=== PATIENT | male | born 1990 | race Caucasian/White ===

== ENCOUNTER 2017-11-24 18:09 | Emergency (ER) | payer OTHER, BC ==
[2017-11-24 18:27] VITALS: RESP 16
[2017-11-24] MEDS ORDERED: SODIUM CHLORIDE 0.9% 1,000 ML IV STA (20:39)
--- NOTE | 2017-11-24 21:15 | XR ---
EXAMINATION TYPE: XR chest 2V DATE OF EXAM: 11/24/2017 COMPARISON: NONE HISTORY: Chest pain TECHNIQUE: Frontal and lateral views of the chest are obtained. FINDINGS: Heart and mediastinum are normal. Lungs are clear. Diaphragm is normal. Bony thorax appear s normal. IMPRESSION: Normal chest
--- NOTE | 2017-11-24 21:21 | ED ---
Burn/Smoke HPI - General Chief complaint: Burn/Smoke Inhalation Stated complaint: Possible inhaled powder substance at work Time Seen by Provider: 11/24/17 20:25 Source: patient, RN notes reviewed Mode of arrival: ambulatory Limitations: no limitations - History of Present Illness Initial comments: This is a 27-year-old male who presents to the emergency department with chief complaint of possible inhalation of an unknown substance. Patient states that he works for [employer]. He states that last evening he opened up a bag that contained Xanax and an unknown powder substance. Patient states that he instantly felt chilled. He states that this morning when he woke up he had body aches and has had a cough. Patient is concerned and immediately if inhaled a danger substance. He denies any fevers, chest pain or shortness of breath, abdominal pain, nausea or vomiting. States he is generally healthy. Denies any recent illnesses or infections. - Related Data Home Medications Medication Instructions Recorded Confirmed Multivitamin,Therapeutic [Thera] 1 tab PO DAILY 11/24/17 11/24/17 Allergies Allergy/AdvReac Type Severity Reaction Status Date / Time No Known Allergies Allergy Verified 11/24/17 20:15 Review of Systems ROS Statement: Those systems with pertinent positive or pertinent negative responses have been documented in the HPI. ROS Other: All systems not noted in ROS Statement are negative. Past Medical History Past Medical History: No Reported History History of Any Multi-Drug Resistant Organisms: None Reported Past Surgical History: Orthopedic Surgery Additional Past Surgical History / Comment(s): ANKLE SURGERY Past Psychological History: No Psychological Hx Reported Smoking Status: Never smoker Past Alcohol Use History: None Reported Past Drug Use History: None Reported General Exam - General Exam Comments Initial Comments: General: Awake and alert, well-developed; in no apparent distress. Does not appear acutely ill. HEENT: Head atraumatic, normocephalic. Pupils are equal, round and reactive to light. Extraocular movements intact. Oropharynx moist without erythema or exudate. Neck: Supple. Normal ROM. Cardiovascular: Regular rate and rhythm. No murmurs, rubs or gallops. Chest symmetrical. Respiratory: Lungs clear to auscultation bilaterally. No wheezes, rales or rhonchi. Normal respiratory effort with no use of accessory muscles. Musculoskeletal: Normal ROM, no tenderness bilateral upper and lower extremities. Ambulating normally. Skin: [place], warm and dry without rashes or lesions. Neurological: Alert and oriented x3. CN II-XII grossly intact. Speech is fluent and answers are appropriate. No focal neuro deficits. Psychiatric: Normal mood and affect. No overt signs of depression or anxiety noted. Limitations: no limitations Course Vital Signs 11/24/17 18:23 Temperature 97.8 F Pulse Rate 91 Respiratory 16 Rate Blood Pressure 136/81 O2 Sat by Pulse 98 Oximetry Medical Decision Making - Medical Decision Making This is a 27-year-old male who presents to the emergency department with chief complaint of possible inhalation of unknown substance. Patient reports body aches, chills since yesterday after opening a package at work and that contained a foreign powder a substance. Patient requested drug screen. This was negative. Chest x-ray revealed no acute abnormalities. CBC and CMP are unremarkable. Patient requests a couple days off from work. Vitals are stable and he is no acute distress. He will be discharged home at this time. Patient is in agreement. All questions answered. - Lab Data Result diagrams: 11/24/17 21:36 11/24/17 21:36 Lab Results 11/24/17 11/24/17 11/24/17 Range/Units 21:36 21:36 21:36 WBC 12.9 H (3.8-10.6) k/uL RBC 5.32 (4.30-5.90) m/uL Hgb 16.0 (13.0-17.5) gm/dL Hct 48.1 (39.0-53.0) % MCV 90.5 (80.0-100.0) fL MCH 30.1 (25.0-35.0) pg MCHC 33.2 (31.0-37.0) g/dL RDW 12.8 (11.5-15.5) % Plt Count 169 (150-450) k/uL Neutrophils % 76 % Lymphocytes % 14 % Monocytes % 7 % Eosinophils % 2 % Basophils % 0 % Neutrophils # 9.8 H (1.3-7.7) k/uL Lymphocytes # 1.8 (1.0-4.8) k/uL Monocytes # 0.9 (0-1.0) k/uL Eosinophils # 0.2 (0-0.7) k/uL Basophils # 0.0 (0-0.2) k/uL Sodium 139 (137-145) mmol/L Potassium 4.4 (3.5-5.1) mmol/L Chloride 104 (98-107) mmol/L Carbon Dioxide 26 (22-30) mmol/L Anion Gap 9 mmol/L BUN 20 (9-20) mg/dL Creatinine 1.38 H (0.66-1.25) mg/dL Est GFR (CKD-EPI)AfAm 81 (>60 ml/min/1.73 sqM) Est GFR (CKD-EPI)NonAf 70 (>60 ml/min/1.73 sqM) Glucose 92 (74-99) mg/dL Calcium 8.8 (8.4-10.2) mg/dL Total Bilirubin 0.7 (0.2-1.3) mg/dL AST 48 (17-59) U/L ALT 45 (21-72) U/L Alkaline Phosphatase 42 (38-126) U/L Total Protein 6.7 (6.3-8.2) g/dL Albumin 3.9 (3.5-5.0) g/dL Urine Opiates Screen Not Detected (NotDetected) Ur Oxycodone Screen Not Detected (NotDetected) Urine Methadone Screen Not Detected (NotDetected) Ur Propoxyphene Screen Not Detected (NotDetected) Ur Barbiturates Screen Not Detected (NotDetected) U Tricyclic Antidepress Not Detected (NotDetected) Ur Phencyclidine Scrn Not Detected (NotDetected) Ur Amphetamines Screen Not Detected (NotDetected) U Methamphetamines Scrn Not Detected (NotDetected) U Benzodiazepines Scrn Not Detected (NotDetected) Urine Cocaine Screen Not Detected (NotDetected) U Marijuana (THC) Screen Not Detected (NotDetected) - Radiology Data Radiology results: report reviewed Chest x-ray impression: Normal chest. Disposition Clinical Impression: Myalgia Disposition: HOME SELF-CARE Condition: Good Instructions: Musculoskeletal Pain (ED) Additional Instructions: Please follow up with primary care provider within 1-2 days. Return to emergency department if symptoms should worsen or any concerns arise. Is patient prescribed a controlled substance at d/c from ED?: No Referrals: None,Stated [Primary Care Provider] - 1-2 days Time of Disposition: 22:59
[2017-11-24 21:51] LABS: Basophils % (A) 0 %; Eosinophils # (A) 0.2 k/uL (0-0.7); Eosinophils % (A) 2 %; HCT 48.1 % (39.0-53.0); Lymphocytes # (A) 1.8 k/uL (1.0-4.8); Lymphocytes % (A) 14 %; MCH 30.1 pg (25.0-35.0); MCHC 33.2 g/dL (31.0-37.0); MCV 90.5 fL (80.0-100.0); Mean Platelet Volume 7.6; Monocytes # (A) 0.9 k/uL (0-1.0); Monocytes % (A) 7 %; Neutrophils # (A) 9.8 k/uL (1.3-7.7); Neutrophils % (A) 76 %; Platelet Count 169 k/uL (150-450); RBC 5.32 m/uL (4.30-5.90); RDW 12.8 % (11.5-15.5); WBC 12.9 k/uL (3.8-10.6)
[2017-11-24 22:05] LABS: Amphetamine Screen,Urine Not Detected (NotDetected); Barbiturate Screen,Urine Not Detected (NotDetected); Benzodiazepines Screen,Urine Not Detected (NotDetected); Cocaine Screen,Urine Not Detected (NotDetected); Methadone Screen, Urine Not Detected (NotDetected); Opiate Screen,Urine Not Detected (NotDetected); Oxycodone Screen, Urine Not Detected (NotDetected); Phencyclidine Screen,Urine Not Detected (NotDetected); Tricyclic Antidepressant,Urine Not Detected (NotDetected); Urn Cannabinoid Scrn Not Detected (NotDetected)
[2017-11-24 22:16] LABS: Albumin 3.9 g/dL (3.5-5.0); Calcium 8.8 mg/dL (8.4-10.2); Potassium 4.4 mmol/L (3.5-5.1); Total Bilirubin 0.7 mg/dL (0.2-1.3); Total Protein 6.7 g/dL (6.3-8.2)
[2017-11-24 23:43] VITALS: TEMP 98.7
[2017-11-24 23:44] VITALS: BP 135/77; PULSE 94
== END 2017-11-24 23:44 | disposition home or self-care (01) ==
LOC: EC 18:09
DX: M79.1 Myalgia (principal); R05 Cough; R68.83 Chills (without fever)
CPT/HCPCS: 36415; 71046; 80053; 80306; 85025; 96360; 99283

== ENCOUNTER → 2018-01-29 | Outpatient (CLI) | payer BC ==
[2018-01-29 16:39] LABS: HGB 14.7 gm/dL (13.0-17.5); MCHC 32.5 g/dL (31.0-37.0); MCV 92.1 fL (80.0-100.0); Mean Platelet Volume 7.1; Platelet Count 252 k/uL (150-450); RBC 4.89 m/uL (4.30-5.90); RDW 13.4 % (11.5-15.5)
[2018-01-29 16:48] LABS: INR 1.1 (<1.2); Partial Thromboplastin Time 22.4 sec (22.0-30.0); Prothrombin Time 10.6 sec (9.0-12.0)
[2018-01-30 08:26] LABS: Anion Gap 7.7 mmol/L (4.00-12.00); Calcium 9.1 mg/dL (8.7-10.3); Carbon Dioxide 26.3 mmol/L (21.6-31.8); Potassium 4.8 mmol/L (3.5-5.5)
== END ==
LOC: LABWHC1 15:54
DX: Z01.812 Encounter for preprocedural laboratory examination (principal)
CPT/HCPCS: 36415; 80048; 85027; 85610; 85730

== ENCOUNTER 2018-05-25 00:11 | Emergency (ER) | payer BC ==
[2018-05-25 00:19] VITALS: TEMP 99.2
[2018-05-25] MEDS ORDERED: SODIUM CHLORIDE 0.9% 1,000 ML IV ONE (00:37)
--- NOTE | 2018-05-25 00:44 | ED ---
General Adult HPI - General Chief complaint: Skin/Abscess/Foreign Body Stated complaint: Recheck Swollen Butt Cheek Time Seen by Provider: 05/25/18 00:23 Source: patient Mode of arrival: ambulatory Limitations: no limitations - History of Present Illness Initial comments: There presents with a chief complaint of an abscess of the right gluteus. The patient states that he was visiting family in [place] and went to a place called [facility] for an injection of vitamins and other supplements that were supposed to help him with seasonal depression. Now, 2 days later the patient states that after driving home he had pain in the right gluteus with a fever as high as 102. Patient states that that side is swollen, it is tender to palpation, and it is uncomfortable to sit. He denies any pain with defecation. He does not have any other known medical problems. - Related Data Home Medications Medication Instructions Recorded Confirmed Multivitamin,Therapeutic [Thera] 1 tab PO DAILY 11/24/17 11/24/17 Previous Rx's Medication Instructions Recorded Sulfamethox-Tmp 800-160Mg [Bactrim 1 tab PO Q12HR #13 tab 05/25/18 DS 800-160 mg] Allergies Allergy/AdvReac Type Severity Reaction Status Date / Time No Known Allergies Allergy Verified 05/25/18 00:21 Review of Systems ROS Statement: Those systems with pertinent positive or pertinent negative responses have been documented in the HPI. ROS Other: All systems not noted in ROS Statement are negative. Constitutional: Reports: fever Past Medical History Past Medical History: No Reported History History of Any Multi-Drug Resistant Organisms: None Reported Past Surgical History: Orthopedic Surgery Additional Past Surgical History / Comment(s): ANKLE SURGERY Past Psychological History: No Psychological Hx Reported Smoking Status: Never smoker Past Alcohol Use History: None Reported Past Drug Use History: None Reported General Exam Limitations: no limitations General appearance: alert, in no apparent distress Head exam: Present: atraumatic, normocephalic Eye exam: Present: normal appearance ENT exam: Present: normal exam Neck exam: Present: normal inspection Respiratory exam: Present: normal lung sounds bilaterally. Absent: respiratory distress, wheezes Cardiovascular Exam: Present: regular rate, normal rhythm GI/Abdominal exam: Present: soft. Absent: distended, tenderness Rectal exam: Present: deferred Extremities exam: Present: normal inspection Back exam: Present: normal inspection Neurological exam: Present: alert, oriented X3 Psychiatric exam: Present: normal affect, normal mood Skin exam: Present: warm, dry, intact, other (Patient has an area of swelling and fluctuance on the right lateral buttocks. There does not appear to be any significant overlying skin changes consistent with cellulitis. Ultrasound evaluation shows a large fluid collection underneath the skin which appears to be within the muscle belly.) Course Vital Signs 05/25/18 05/25/18 00:12 01:21 Temperature 99.2 F Pulse Rate 92 77 Respiratory 18 16 Rate Blood Pressure 133/79 126/71 O2 Sat by Pulse 99 97 Oximetry Medical Decision Making - Medical Decision Making Patient presents with a chief complaint of a possible abscess in the right gluteus. The patient got a vitamin injection 2 days ago in [place] and started having pain after driving home to [place]. On initial evaluation, vitals are stable, patient is in no acute distress. Examination of the areas concerning for an abscess as a fluctuance and tenderness to palpation. There are no overlying skin changes. Bedside ultrasound was performed showing a large discrete fluid collection which appears to be within the muscle belly. Because of this, the patient will be sent for computed tomography scan evaluation with contrast to further characterize fluid collection. Patient denies anabolic steroid use. Basic labs including lactic acid and blood cultures were sent. 1:41 AM Evaluation this patient is unremarkable. Computed tomography scan was reviewed independently and discussed with the reading radiologist. There is no definite ring-enhancing area of abscess. There is noted soft tissue edema and hypervascularization but no evidence of a drainable abscess. I discussed this case with Dr. Parra who states that there is nothing surgical to do at this time given there is no discrete abscess. The patient will be started on antibiotics, given his first dose of Bactrim in the emergency department. He'll be instructed to follow-up with primary care in 1-2 days or return to the [facility] department if symptoms worsen or change. - Lab Data Result diagrams: 05/25/18 00:48 05/25/18 00:48 Lab Results 05/25/18 05/25/18 05/25/18 Range/Units 00:48 00:48 00:48 WBC 8.7 (3.8-10.6) k/uL RBC 5.08 (4.30-5.90) m/uL Hgb 15.1 (13.0-17.5) gm/dL Hct 46.4 (39.0-53.0) % MCV 91.4 (80.0-100.0) fL MCH 29.6 (25.0-35.0) pg MCHC 32.4 (31.0-37.0) g/dL RDW 13.6 (11.5-15.5) % Plt Count 197 (150-450) k/uL Neutrophils % 65 % Lymphocytes % 20 % Monocytes % 9 % Eosinophils % 3 % Basophils % 0 % Neutrophils # 5.6 (1.3-7.7) k/uL Lymphocytes # 1.8 (1.0-4.8) k/uL Monocytes # 0.8 (0-1.0) k/uL Eosinophils # 0.3 (0-0.7) k/uL Basophils # 0.0 (0-0.2) k/uL Sodium 138 (137-145) mmol/L Potassium 3.9 (3.5-5.1) mmol/L Chloride 104 (98-107) mmol/L Carbon Dioxide 26 (22-30) mmol/L Anion Gap 8 mmol/L BUN 25 H (9-20) mg/dL Creatinine 1.26 H (0.66-1.25) mg/dL Est GFR (CKD-EPI)AfAm 89 (>60 ml/min/1.73 sqM) Est GFR (CKD-EPI)NonAf 77 (>60 ml/min/1.73 sqM) Glucose 101 H (74-99) mg/dL Plasma Lactic Acid Thomas 1.2 (0.7-2.0) mmol/L Calcium 8.5 (8.4-10.2) mg/dL Disposition Clinical Impression: Cellulitis Disposition: HOME SELF-CARE Condition: Good Instructions (If sedation given, give patient instructions): Cellulitis (ED) Is patient prescribed a controlled substance at d/c from ED?: No Referrals: None,Stated [Primary Care Provider] - 1-2 days Marcelle Santiago MD [STAFF PHYSICIAN] - 1-2 days
[2018-05-25 01:00] LABS: Basophils % (A) 0 %; Eosinophils # (A) 0.3 k/uL (0-0.7); Eosinophils % (A) 3 %; HCT 46.4 % (39.0-53.0); HGB 15.1 gm/dL (13.0-17.5); Lymphocytes # (A) 1.8 k/uL (1.0-4.8); Lymphocytes % (A) 20 %; MCH 29.6 pg (25.0-35.0); MCHC 32.4 g/dL (31.0-37.0); MCV 91.4 fL (80.0-100.0); Mean Platelet Volume 7.3; Monocytes # (A) 0.8 k/uL (0-1.0); Monocytes % (A) 9 %; Neutrophils # (A) 5.6 k/uL (1.3-7.7); Neutrophils % (A) 65 %; Platelet Count 197 k/uL (150-450); RBC 5.08 m/uL (4.30-5.90); RDW 13.6 % (11.5-15.5); WBC 8.7 k/uL (3.8-10.6)
[2018-05-25 01:14] LABS: Calcium 8.5 mg/dL (8.4-10.2); Potassium 3.9 mmol/L (3.5-5.1)
[2018-05-25 01:23] VITALS: BP 126/71; PULSE 77; RESP 16
--- NOTE | 2018-05-25 01:23 | CT ---
ADDENDUM - Added by Jenny Jackson M.D. on 05/25/2018 1:34 AM (-08:00) Patient reportedly had an intramuscular shot in the right gluteal region. This likely explains the fat stranding in the subcutaneous fat over the right gluteal muscles. Hypoattenuation in the right gluteus santino muscle is concerning for fluid and edema within the muscle which may be related to the recent injection. Superimposed infection is not entirely excluded. No definite rim-enhancing fluid collection identified at this time. No definite soft tissue gas. EXAM: CT Abdomen and Pelvis With Intravenous Contrast CLINICAL HISTORY: ITS.REASON CT Reason: Pain TECHNIQUE: Axial computed tomography images of the abdomen and pelvis with intravenous contrast. CTDI is 17.27 mGy and DLP is 796.5 mGy-cm. This CT exam was performed using one or more of the following dose reduction techniques: automated exposure control, adjustment of the mA and/or kV according to patient size, and/or use of iterative reconstruction technique. COMPARISON: None FINDINGS: Liver: Probable hepatic steatosis. Mild hepatomegaly. No focal lesion. Spleen: Normal. No focal lesion. Gallbladder: Normal. No stones or biliary dilatation. Pancreas: Normal. No acute inflammation. No mass. Adrenal glands: Normal. No mass. Kidneys: Normal. No hydronephrosis or stone. No mass. Bowel: Normal appendix. No bowel obstruction or inflammation. Urinary bladder: Normal. No wall thickening or mass. Reproductive organs: Prominent vessels in the inguinal canals/scrotum. Muscles: No mass. Subcutaneous tissues: Nonspecific fat stranding in the gluteal soft tissues. Peritoneal space: Normal. No free fluid. Lymph nodes: Normal. No lymphadenopathy. Vessels: Normal. No aneurysm or dissection. Bones: Normal. No acute fracture or bony lesion. Lung bases: Normal. IMPRESSION: No acute abnormality in the abdomen or pelvis. Prominent vessels in the inguinal canals/scrotum bilaterally may represent varicoceles. <MYCVCSECTION> Critical Value Communications 05/25/18 01:32 Call From [facility] Dr. Banks on 05/25 01:30 (-05:00)
[2018-05-25] MEDS ORDERED: SULFAMETHOX-TMP 800-160MG 1 EACH TAB PO STA (01:39)
== END 2018-05-25 02:11 | disposition home or self-care (01) ==
LOC: EC 00:11
DX: L03.317 Cellulitis of buttock (principal)
CPT/HCPCS: 36415; 74177; 80048; 83605; 85025; 87040; 96360; 99284

== ENCOUNTER 2018-08-17 17:29 | Emergency (ER) | payer BC ==
[2018-08-17 19:54] LABS: Appearance,Urine Clear (Clear); Bilirubin,Urine Negative (Negative); Blood,Urine Negative (Negative); Color,Urine Yellow; Glucose,Urine (UA) Negative (Negative); Ketones,Urine Negative (Negative); Leukocyte Esterase,Urine Negative (Negative); Nitrite,Urine Negative (Negative); Protein,Urine Negative (Negative); Specific Gravity,Urine 1.024 (1.001-1.035); Urobilinogen,Urine <2.0 mg/dL (<2.0)
--- NOTE | 2018-08-17 20:03 | US ---
EXAMINATION TYPE: US scrotum with doppler. Grayscale and color Doppler Duplex imaging performed of gilbert verduzco scrotum. DATE OF EXAM: 08/17/2018 COMPARISON: NONE CLINICAL HISTORY: Pain. pain in left testicle with palpable for 1 month EXAM MEASUREMENTS: TESTICLES: Right Testicle: 5.8 x 4.7 x 3.8 cm Left Testicle: 5.8 x 4.8 x 3.5 cm EPIDIDYMIS HEAD: Right Epididymis: 2.0 cm Left Epididymis: 1.9 cm Doppler performed to assess for testicular vascularity; good bilateral color flow and waveforms are s een. There is no evidence of testicular torsion. Presence of hydroceles: mild bilaterally Presence of varicoceles: no Diffusely heterogeneous, large testicles bilaterally with appearance of intratesticular masses, micro calcifications and minimal normal scrotal tissue noted. IMPRESSION: No testicular torsion. Mild bilateral hydroceles. Enlarged left and right testicle with e vidence of microlithiasis. Bilateral infiltrative process of the testicles should be considered such as lymphoma. Also consider unusual bilateral inflammatory process.
[2018-08-17] MEDS ORDERED: CIPROFLOXACIN HCL 500 MG TAB PO STA (20:17)
[2018-08-17 20:36] VITALS: RESP 18; TEMP 98.1
[2018-08-17 20:47] LABS: Basophils % (A) 0 %; Eosinophils # (A) 0.1 k/uL (0-0.7); Eosinophils % (A) 2 %; HCT 47.4 % (39.0-53.0); Lymphocytes # (A) 1.9 k/uL (1.0-4.8); Lymphocytes % (A) 26 %; MCHC 33.7 g/dL (31.0-37.0); Mean Platelet Volume 7.3; Monocytes # (A) 0.6 k/uL (0-1.0); Monocytes % (A) 8 %; Neutrophils # (A) 4.5 k/uL (1.3-7.7); Neutrophils % (A) 62 %; Platelet Count 179 k/uL (150-450); RBC 5.33 m/uL (4.30-5.90); RDW 13.1 % (11.5-15.5); WBC 7.3 k/uL (3.8-10.6)
[2018-08-17 20:53] LABS: Albumin 4.3 g/dL (3.5-5.0); Calcium 8.9 mg/dL (8.4-10.2); Potassium 4.1 mmol/L (3.5-5.1); Total Bilirubin 0.4 mg/dL (0.2-1.3)
[2018-08-17 21:31] VITALS: BP 119/54; PULSE 67
--- NOTE | 2018-08-17 21:32 | ED ---
General Adult HPI - General Chief complaint: Urogenital Stated complaint: lower abdominal pain Time Seen by Provider: 08/17/18 18:55 Source: patient, RN notes reviewed, old records reviewed Mode of arrival: ambulatory Limitations: no limitations - History of Present Illness Initial comments: 20-year-old male patient with no pertinent past history presents to ED approximately 1 month of left testicular pain. Patient states that his left sharon ticle feels swollen and painful. Patient denies any dysuria. Patient denies concern for STI, pt denies other complaints. Systemic: Pt denies fatigue, myalgia, fever/chills, rash. Pt denies weakness, night sweats, weight loss. Neuro: Pt denies headache, visual disturbances, syncope or pre-syncope. HEENT: Pt denies ocular discharge or irritation, otalgia, rhinorrhea, pharyngitis or notable lymphadenopathy. Cardiopulmonary: Pt denies chest pain, SOB, heart palpitations, dyspnea on exertion. Abdominal/GI: Pt denies abdominal pain, n/v/d. : Pt denies dysuria, burning w/ urination, frequency/urgency. Denies new onset urinary or bowel incontinence. MSK: Pt denies myalgia, loss of strength or function in extremities. Neuro: Pt denies new onset weakness, paresthesias. - Related Data Home Medications Medication Instructions Recorded Confirmed Multivitamin,Therapeutic [Thera] 1 tab PO DAILY 11/24/17 11/24/17 Previous Rx's Medication Instructions Recorded Sulfamethox-Tmp 800-160Mg [Bactrim 1 tab PO Q12HR #13 tab 05/25/18 DS 800-160 mg] Ciprofloxacin HCl [Cipro] 500 mg PO Q12HR 7 Days #14 day 08/17/18 Allergies Allergy/AdvReac Type Severity Reaction Status Date / Time No Known Allergies Allergy Verified 08/17/18 17:48 Review of Systems ROS Statement: Those systems with pertinent positive or pertinent negative responses have been documented in the HPI. ROS Other: All systems not noted in ROS Statement are negative. Past Medical History Past Medical History: No Reported History History of Any Multi-Drug Resistant Organisms: None Reported Past Surgical History: Orthopedic Surgery Additional Past Surgical History / Comment(s): ANKLE SURGERY Past Psychological History: No Psychological Hx Reported Smoking Status: Never smoker Past Alcohol Use History: None Reported Past Drug Use History: None Reported General Exam - General Exam Comments Initial Comments: Constitutional: NAD, AOX3, Pt has pleasant affect. HEENT: NC/AT, trachea midline, neck supple, no lymphadenopathy. Posterior pharynx non erythematous, without exudates. External ears appear normal, without discharge. Mucous membranes moist. Eyes PERRLA, EOM intact. There is no scleral icterus. No pallor noted. Cardiopulmonary: RRR, no murmurs, rubs or gallops, no JVD noted. Lungs CTAB in anterior and posterior johnson. No peripheral edema. Abdominal exam: Abdomen soft and non-distended. Abdomen non-tender to palpation in all 4 quadrants. Bowel sounds active in LLQ. No hepatosplenomegaly. No ecchymosis Neuro: CN II-XII grossly intact. No nuchal rigidity. MSK: No posterior calf tenderness bilaterally, homans sign negative bilaterally. Posterior tibialis and radial pulse +2 bilaterally. Sensation intact in upper a nd lower extremities. Full active ROM in upper and lower extremities, 5/5 stregnth. : Left testicle enlarged, mildly tender to palpation. No ulcerations, no lesions, no discharge noted from penis. No hernias noted. Cremasteric reflex intact. Limitations: no limitations Course Vital Signs 08/17/18 08/17/18 08/17/18 17:45 20:35 21:30 Temperature 98.2 F 98.1 F Pulse Rate 71 72 67 Respiratory 16 18 18 Rate Blood Pressure 121/72 144/70 119/54 O2 Sat by Pulse 98 97 95 Oximetry Medical Decision Making - Medical Decision Making 20-year-old male patient with no pertinent past history presents to ED approximately 1 month of left testicular pain. Patient states that his left testicle feels swollen and painful. Patient denies any dysuria. Patient denies concern for STI, pt denies other complaints. Patient does have stable, afebrile. Physical exam displayed: Left testicle enlarged, mildly tender to palpation. No ulcerations, no lesions, no discharge noted from penis. No hernias noted. Cremasteric reflex intact. Ultrasound of scrotum displayed a testicular torsion, mild bilateral hydroceles, enlarged left right testicle evidence of microlithiasis. Bilateral infiltrative process of the testicles revealed states that his lymphoma, also consider unusual bilateral inflammatory process. Laboratory investigations revealed nonspecific CBC. CMP revealed mildly increased creatinine at baseline since 2018. UA negative. Patient will be discharged with ciprofloxacin for possible infection process within te sticles. Patient will be given urology as well as oncology follow-up. Patient will continue to follow kidney function with primary care provider. Patient return to ER patient worsens in anyway. Case discussed with Dr. Ochoa. - Lab Data Result diagrams: 08/17/18 20:35 08/17/18 20:35 Lab Results 08/17/18 08/17/18 08/17/18 Range/Units 19:22 20:35 20:35 WBC 7.3 (3.8-10.6) k/uL RBC 5.33 (4.30-5.90) m/uL Hgb 16.0 (13.0-17.5) gm/dL Hct 47.4 (39.0-53.0) % MCV 89.0 (80.0-100.0) fL MCH 30.0 (25.0-35.0) pg MCHC 33.7 (31.0-37.0) g/dL RDW 13.1 (11.5-15.5) % Plt Count 179 (150-450) k/uL Neutrophils % 62 % Lymphocytes % 26 % Monocytes % 8 % Eosinophils % 2 % Basophils % 0 % Neutrophils # 4.5 (1.3-7.7) k/uL Lymphocytes # 1.9 (1.0-4.8) k/uL Monocytes # 0.6 (0-1.0) k/uL Eosinophils # 0.1 (0-0.7) k/uL Basophils # 0.0 (0-0.2) k/uL Sodium 139 (137-145) mmol/L Potassium 4.1 (3.5-5.1) mmol/L Chloride 104 (98-107) mmol/L Carbon Dioxide 27 (22-30) mmol/L Anion Gap 8 mmol/L BUN 25 H (9-20) mg/dL Creatinine 1.27 H (0.66-1.25) mg/dL Est GFR (CKD-EPI)AfAm 88 (>60 ml/min/1.73 sqM) Est GFR (CKD-EPI)NonAf 76 (>60 ml/min/1.73 sqM) Glucose 101 H (74-99) mg/dL Calcium 8.9 (8.4-10.2) mg/dL Total Bilirubin 0.4 (0.2-1.3) mg/dL AST 60 H (17-59) U/L ALT 47 (21-72) U/L Alkaline Phosphatase 61 (38-126) U/L Total Protein 7.0 (6.3-8.2) g/dL Albumin 4.3 (3.5-5.0) g/dL Urine Color Yellow Urine Appearance Clear (Clear) Urine pH 6.0 (5.0-8.0) Ur Specific [place] 1.024 (1.001-1.035) Urine Protein Negative (Negative) Urine Glucose (UA) Negative (Negative) Urine Ketones Negative (Negative) Urine Blood Negative (Negative) Urine Nitrite Negative (Negative) Urine Bilirubin Negative (Negative) Urine Urobilinogen <2.0 (<2.0) mg/dL Ur Leukocyte Esterase Negative (Negative) Disposition Clinical Impression: Testicular pain Disposition: HOME SELF-CARE Condition: Stable Instructions (If sedation given, give patient instructions): Testicle Pain (ED) Additional Instructions: Patient to adhere to previously discussed treatment plan and will take medication(s) as directed. Patient to follow up with PCP in 1-2 days. Patient to return to ED if symptoms do not improve. Follow-up with primary care provider as well as consults tomorrow. Return to ER if condition worsens. Prescriptions: Ciprofloxacin HCl [Cipro] 500 mg PO Q12HR 7 Days #14 day Is patient prescribed a controlled substance at d/c from ED?: No Referrals: None,Stated [Primary Care Provider] - 1-2 days Scooby Anguiano MD [STAFF PHYSICIAN] - 1-2 days Cornelio Mederos MD [STAFF PHYSICIAN] - 1-2 days
[2018-08-19 14:25] LABS: C. trachomatis,PCR Negative (Neg,Equiv); Chlamydia trachomatis Source Urine
[2018-08-19 14:32] LABS: N. gonorrhoeae,PCR Negative (Neg,Equiv); Neisseria Source Urine
== END 2018-08-17 21:59 | disposition home or self-care (01) ==
LOC: EC 17:29
DX: N50.812 Left testicular pain (principal); R79.89 Other specified abnormal findings of blood chemistry; N44.00 Torsion of testis, unspecified; N43.3 Hydrocele, unspecified
CPT/HCPCS: 36415; 76870; 80053; 81003; 85025; 87086; 87491; 87591; 93975; 99284

== ENCOUNTER → 2018-08-28 | Outpatient (CLI) | payer BC | LOC: LABWHC1 07:47 | PROVIDERS: ATTEND Urology | DX: D40.12 Neoplasm of uncertain behavior of left testis (principal) | CPT/HCPCS: 36415; 82040; 82105; 82670; 83001; 83002; 84270; 84403 ==

== ENCOUNTER → 2018-08-29 | Outpatient (CLI) | payer BC | END | disposition home or self-care (01) | LOC: LABWHC1 09:42 | PROVIDERS: ATTEND Internal Medicine Endocrinology, Diabetes & Metabolism | DX: E29.1 Testicular hypofunction (principal) ==

== ENCOUNTER → 2018-09-05 | Outpatient (CLI) | payer BC ==
--- NOTE | 2018-09-05 11:16 | XR ---
EXAMINATION TYPE: XR chest 2V DATE OF EXAM: 09/05/2018 COMPARISON: 11/24/2017 TECHNIQUE: PA and lateral views submitted. HISTORY: Presurgical FINDINGS: The lungs are clear and there is no pneumothorax, pleural effusion, or focal pneumonia. IMPRESSION: 1. No acute process.
[2018-09-05 11:36] LABS: Basophils % (A) 1 %; Eosinophils # (A) 0.1 k/uL (0-0.7); Eosinophils % (A) 3 %; HCT 51.2 % (39.0-53.0); HGB 16.3 gm/dL (13.0-17.5); Lymphocytes # (A) 1.2 k/uL (1.0-4.8); Lymphocytes % (A) 30 %; MCH 29.7 pg (25.0-35.0); MCHC 31.9 g/dL (31.0-37.0); MCV 93.2 fL (80.0-100.0); Mean Platelet Volume 7.4; Monocytes # (A) 0.4 k/uL (0-1.0); Monocytes % (A) 9 %; Neutrophils # (A) 2.3 k/uL (1.3-7.7); Neutrophils % (A) 54 %; Platelet Count 187 k/uL (150-450); RBC 5.49 m/uL (4.30-5.90); WBC 4.2 k/uL (3.8-10.6)
[2018-09-05 16:50] LABS: African American GFR (CKD) 78.7 (60.0-200.0); Albumin 4.1 g/dL (3.80-4.90); Albumin/Globulin Ratio 1.95 (1.60-3.17); Anion Gap 5.8 mmol/L (4.00-12.00); BUN/Creat Ratio 16.43 Ratio (12.00-20.00); Calcium 9.2 mg/dL (8.7-10.3); Carbon Dioxide 29.2 mmol/L (21.6-31.8); Globulin 2.1 g/dL (1.6-3.3); Potassium 4.6 mmol/L (3.5-5.5); Total Bilirubin 0.4 mg/dL (0.2-1.2); Total Protein 6.2 g/dL (6.2-8.2)
== END | disposition home or self-care (01) ==
LOC: LABWHC1 10:15
PROVIDERS: ATTEND Urology
DX: C62.12 Malignant neoplasm of descended left testis (principal)
CPT/HCPCS: 36415; 71046; 80053; 85025

== ENCOUNTER → 2018-09-17 | Outpatient (CLI) | payer BC | END | disposition home or self-care (01) | LOC: LABWHC1 10:54 | PROVIDERS: ATTEND Urology | DX: C62.12 Malignant neoplasm of descended left testis (principal) | CPT/HCPCS: 36415; 82105 ==

== ENCOUNTER → 2018-10-08 | Outpatient (CLI) | payer BC ==
[2018-10-08 16:56] LABS: HCT 49.9 % (39.0-53.0); HGB 16.4 gm/dL (13.0-17.5); MCH 29.2 pg (25.0-35.0); MCHC 32.8 g/dL (31.0-37.0); MCV 89.1 fL (80.0-100.0); Mean Platelet Volume 7.1; Platelet Count 167 k/uL (150-450); RDW 12.8 % (11.5-15.5); WBC 9.7 k/uL (3.8-10.6)
[2018-10-09 00:57] LABS: Alpha Fetoprotein, Tumor Mkr 6.6 ng/mL (0.0-7.9)
== END | disposition home or self-care (01) ==
LOC: LABWHC1 16:32
PROVIDERS: ATTEND Internal Medicine Endocrinology, Diabetes & Metabolism
DX: C62.12 Malignant neoplasm of descended left testis (principal); E29.1 Testicular hypofunction
CPT/HCPCS: 36415; 82040; 82105; 82670; 83001; 83002; 84270; 84403; 85027

== ENCOUNTER → 2018-11-02 | Outpatient (CLI) | payer BC ==
[2018-11-02 09:46] LABS: HCT 50.3 % (39.0-53.0); HGB 17.1 gm/dL (13.0-17.5); MCH 30.1 pg (25.0-35.0); MCHC 34.1 g/dL (31.0-37.0); MCV 88.2 fL (80.0-100.0); Platelet Count 160 k/uL (150-450); RDW 14.8 % (11.5-15.5); WBC 4.3 k/uL (3.8-10.6)
== END | disposition home or self-care (01) ==
LOC: LABWHC1 09:09
PROVIDERS: ATTEND Internal Medicine Endocrinology, Diabetes & Metabolism
DX: E29.1 Testicular hypofunction (principal)
CPT/HCPCS: 36415; 82670; 83001; 83002; 84403; 85027

== ENCOUNTER → 2018-11-27 | Outpatient (CLI) | payer BC ==
[2018-11-27 15:59] LABS: HCT 47.3 % (39.0-53.0); MCH 29.4 pg (25.0-35.0); MCHC 33.9 g/dL (31.0-37.0); MCV 86.9 fL (80.0-100.0); Mean Platelet Volume 7.6; Platelet Count 147 k/uL (150-450); RBC 5.44 m/uL (4.30-5.90); RDW 12.5 % (11.5-15.5); WBC 3.5 k/uL (3.8-10.6)
== END | disposition home or self-care (01) ==
LOC: LABWHC1 14:50
PROVIDERS: ATTEND Internal Medicine Endocrinology, Diabetes & Metabolism
DX: E29.1 Testicular hypofunction (principal)
CPT/HCPCS: 36415; 82040; 82670; 83001; 83002; 84270; 84403; 85027

== ENCOUNTER → 2018-12-12 | Outpatient (CLI) | payer BC ==
--- NOTE | 2018-12-12 15:26 | XR ---
EXAMINATION TYPE: XR chest 2V DATE OF EXAM: 12/12/2018 COMPARISON: Prior chest x-ray 11/24/2017, 09/05/2018 HISTORY: Hematuria, testicular cancer TECHNIQUE: Frontal and lateral views of the chest are obtained. FINDINGS: There is no focal air space opacity, pleural effusion, or pneumothorax seen. The cardiac silhouette size is within normal limits. The osseous structures are intact. IMPRESSION: No acute cardiopulmonary process.
--- NOTE | 2018-12-12 16:13 | CT ---
EXAMINATION TYPE: CT abdomen pelvis w con DATE OF EXAM: 12/12/2018 COMPARISON: CT abdomen and pelvis May 2018 HISTORY: F/u testicular ca-LT side. Hx testicular sx, gynecomastia of chest CT DLP: 1926 mGycm, Automated Exposure Control for Dose Reduction was Utilized. CONTRAST: CT scan of the abdomen and pelvis is performed with oral and with IV Contrast, patient injected with 100 mL of Isovue 300. FINDINGS: LUNG BASES: No significant abnormality is appreciated. LIVER/GB: No significant abnormality is appreciated. PANCREAS: No significant abnormality is seen. SPLEEN: No significant abnormality is seen. ADRENALS: No significant abnormality is seen. KIDNEYS: No significant abnormality is seen. BOWEL: Oral contrast reaches level of rectum. No suspicious small or large bowel dilatation PROSTATE/SEMINAL VESICLES: No gross abnormality seen. LYMPH NODES: No greater than 1cm abdominal or pelvic lymph nodes are appreciated. OSSEOUS STRUCTURES: No significant abnormality is seen. OTHER: No significant additional abnormality is seen. IMPRESSION: No suspicious new mass or adenopathy identified to suggest metastatic malignancy.
== END | disposition home or self-care (01) ==
LOC: RADCTMAIN 13:37
PROVIDERS: ATTEND Urology
DX: C62.12 Malignant neoplasm of descended left testis (principal); R31.1 Benign essential microscopic hematuria
CPT/HCPCS: 71046; 74177; Q9967

== ENCOUNTER → 2018-12-18 | Outpatient (CLI) | payer BC ==
[2018-12-18 14:49] LABS: HCT 45.9 % (39.0-53.0); HGB 16.3 gm/dL (13.0-17.5); MCH 30.1 pg (25.0-35.0); MCHC 35.5 g/dL (31.0-37.0); MCV 84.7 fL (80.0-100.0); Mean Platelet Volume 6.7; Platelet Count 168 k/uL (150-450); RBC 5.42 m/uL (4.30-5.90); RDW 12.1 % (11.5-15.5); WBC 3.6 k/uL (3.8-10.6)
[2018-12-18 19:04] LABS: African American GFR (CKD) 78.7 (60.0-200.0); Albumin 4.3 g/dL (3.80-4.90); Albumin/Globulin Ratio 2.15 (1.60-3.17); Anion Gap 7.1 mmol/L (4.00-12.00); BUN/Creat Ratio 17.86 Ratio (12.00-20.00); Calcium 9.4 mg/dL (8.7-10.3); Carbon Dioxide 30.9 mmol/L (21.6-31.8); Chol/HDL Ratio 3.18; LDL Cholesterol,Calculated 83.6 mg/dL (0.0-131.0); Potassium 4.7 mmol/L (3.5-5.5); Total Bilirubin 0.7 mg/dL (0.2-1.2); Total Protein 6.3 g/dL (6.2-8.2); VLDL Calculation 12.4 mg/dL (5.00-40.00)
== END | disposition home or self-care (01) ==
LOC: LABWHC1 13:06
DX: Z00.00 Encounter for general adult medical examination without abnormal findings (principal); E27.9 Disorder of adrenal gland, unspecified; E29.1 Testicular hypofunction; R53.83 Other fatigue; R89.1 Abnormal level of hormones in specimens from other organs, systems and tissues; R94.6 Abnormal results of thyroid function studies
CPT/HCPCS: 36415; 80053; 80061; 82670; 84153; 84403; 84443; 85027

== ENCOUNTER → 2019-01-18 | Outpatient (CLI) | payer BC | LOC: LABWHC1 08:39 | PROVIDERS: ATTEND Urology | DX: C62.12 Malignant neoplasm of descended left testis (principal) | CPT/HCPCS: 36415; 82105 ==

== ENCOUNTER → 2019-02-28 | Outpatient (CLI) | payer BC ==
[2019-02-28 12:01] LABS: HCT 51.6 % (39.0-53.0); HGB 16.8 gm/dL (13.0-17.5); MCH 29.8 pg (25.0-35.0); MCHC 32.6 g/dL (31.0-37.0); MCV 91.3 fL (80.0-100.0); Mean Platelet Volume 8.2; Platelet Count 184 k/uL (150-450); RBC 5.65 m/uL (4.30-5.90); RDW 12.4 % (11.5-15.5)
[2019-02-28 15:39] LABS: ALT 46 U/L (10-49); AST 48 U/L (14-35); African American GFR (CKD) 86.1 (60.0-200.0); Alkaline Phosphatase 80 U/L (41-126); BUN/Creat Ratio 16.92 Ratio (12.00-20.00); Calcium 8.9 mg/dL (8.7-10.3); Chloride 107 mmol/L (96-109); Chol/HDL Ratio 4.65; Cholesterol 144 mg/dL (0-200); Glucose 88 mg/dL (70-110); LDL Cholesterol,Calculated 97.2 mg/dL (0.0-131.0); Non-African American GFR(CKD) 74.3 (60.0-200.0); Potassium 4.4 mmol/L (3.5-5.5); Sodium 141 mmol/L (135-145); Total Bilirubin 0.7 mg/dL (0.2-1.2); Total Protein 6.4 g/dL (6.2-8.2)
[2019-02-28 15:46] LABS: Estradiol 59.3 pg/mL
[2019-02-28 16:15] LABS: Testosterone >3000.00 ng/dL (123.06-813.86)
== END | disposition home or self-care (01) ==
LOC: LABWHC1 11:02
DX: Z00.00 Encounter for general adult medical examination without abnormal findings (principal); E27.9 Disorder of adrenal gland, unspecified; E29.1 Testicular hypofunction; R53.83 Other fatigue; R94.6 Abnormal results of thyroid function studies; R89.1 Abnormal level of hormones in specimens from other organs, systems and tissues
CPT/HCPCS: 36415; 80053; 80061; 82670; 84153; 84403; 84443; 85027

== ENCOUNTER → 2019-03-07 | Outpatient (CLI) | payer BC ==
--- NOTE | 2019-03-07 13:46 | US ---
EXAMINATION TYPE: US scrotum with doppler. Grayscale and color Doppler Duplex imaging performed of gilbert verduzco scrotum. 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 EXAM MEASUREMENTS: TESTICLES: Right Testicle: 4.3 x 2.5 x 3.3 cm Left Testicle: removed/testicular cancer EPIDIDYMIS HEAD: Right Epididymis: 0.9 cm Left Epididymis: removed/testicular cancer Doppler performed to assess for testicular vascularity; good bilateral color flow and waveforms are s een. There is no evidence of testicular torsion. Presence of hydroceles: no Presence of varicoceles: no Numerous microcalcifications, heterogeneous mass measuring 2.2 x 1.6 x 2.4cm. This appeared infiltrat lea on the process with no prior measurements available. 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 There is concern for neoplas m. This was seen on the prior of 08/17/2018. Right-sided microlithiasis is also noted. A Yellow level critical message alert has been initiated for Scooby Anguiano MD via the [employer] Critical Results System on 03/07/2019 1:43 PM. This message alert has been sent to Scooby Anguiano MD via the preferences provided by the clinician for the receipt of Radiology Critical Findings. Mess age ID [id number].
--- NOTE | 2019-03-07 13:47 | XR ---
EXAMINATION TYPE: XR chest 2V DATE OF EXAM: 03/07/2019 COMPARISON: NONE HISTORY: Testicular cancer. Pretreatment. TECHNIQUE: Frontal and lateral views of the chest are obtained. FINDINGS: There is no focal air space opacity, pleural effusion, or pneumothorax seen. The cardiac silhouette size is within normal limits. The osseous structures are intact. IMPRESSION: No acute cardiopulmonary process.
== END | disposition home or self-care (01) ==
LOC: RADUSWWP 12:38
PROVIDERS: ATTEND Urology
DX: C62.12 Malignant neoplasm of descended left testis (principal)
CPT/HCPCS: 71046; 76870; 82105; 93975; 93976

== ENCOUNTER → 2019-04-03 | Outpatient (CLI) | payer BC ==
--- NOTE | 2019-04-03 09:04 | CT ---
EXAMINATION TYPE: CT abdomen pelvis w con DATE OF EXAM: 04/03/2019 COMPARISON: CT abdomen and pelvis December 12, 2018 and May 25, 2018 HISTORY: Lt Testes CA CT DLP: 1176.6 mGycm Automated exposure control for dose reduction was used. TECHNIQUE: Helical acquisition of images was performed from the lung bases through the pelvis. CONTRAST: Performed with Oral Contrast and with IV Contrast, patient injected with 100 mL of Isovue 300. FINDINGS: LUNG BASES: No significant abnormality is appreciated. LIVER/GB: No significant abnormality is appreciated. PANCREAS: No significant abnormality is seen. SPLEEN: No significant abnormality is seen. ADRENALS: No significant abnormality is seen. KIDNEYS: No significant abnormality is seen. ABDOMINAL AND PELVIC ADENOPATHY: There is new left iliac chain adenopathy measuring 2.1 x 1.4 cm lon ge 68. Scar tissue overlying left superior scrotum axial image 77 redemonstrated. There is additional new left periaortic mass or adenopathy measuring 2.2 x 2.1 cm image 36 at site of a prior prominent but subcentimeter lymph node. Superior and anterior to this there is a suspicious prominent but subce ntimeter lymph node image 31, both just below level of renal vessels. There is no aortocaval mass jus t below renal vessels measuring 2.0 x 2.0 cm image 34 REPRODUCTIVE ORGANS: No significant abnormality is seen URINARY BLADDER: No significant abnormality is seen. OSSEOUS STRUCTURES: Spine is straightened on sagittal images. BOWEL: The oral contrast does not reach level of the terminal ileum. There is small bowel feces sign at this level. Findings consistent with delayed passage of ingested material to colonic level is the re is no suspicious bowel dilatation. Normal-appearing appendix incidentally seen from cecum. Mild wa ll thickening left upper pelvis near junction of left and sigmoid colon present prior to poor distent ion. OTHER: Left testicle surgically absent. IMPRESSION: There is neoplastic recurrence with new retroperitoneal adenopathy involving the abdomen and left pelvis as detailed above.
== END | disposition home or self-care (01) ==
LOC: RADCTMAIN 06:06
PROVIDERS: ATTEND Urology
DX: C62.12 Malignant neoplasm of descended left testis (principal); R59.0 Localized enlarged lymph nodes
CPT/HCPCS: 74177; Q9967 ×2

== ENCOUNTER → 2019-04-25 | Outpatient (CLI) | payer BC ==
[2019-04-25 13:42] LABS: HCT 51.6 % (39.0-53.0); HGB 17.1 gm/dL (13.0-17.5); MCH 29.5 pg (25.0-35.0); MCHC 33.2 g/dL (31.0-37.0); MCV 88.9 fL (80.0-100.0); Mean Platelet Volume 8.3; Platelet Count 196 k/uL (150-450); RBC 5.81 m/uL (4.30-5.90); RDW 12.3 % (11.5-15.5)
[2019-04-25 19:09] LABS: ALT 40 U/L (10-49); AST 37 U/L (14-35); African American GFR (CKD) 94.8 (60.0-200.0); Albumin/Globulin Ratio 1.96 (1.60-3.17); Alkaline Phosphatase 93 U/L (41-126); BUN/Creat Ratio 16.67 Ratio (12.00-20.00); Calcium 9.3 mg/dL (8.7-10.3); Carbon Dioxide 28.2 mmol/L (21.6-31.8); Chloride 106 mmol/L (96-109); Cholesterol 148 mg/dL (0-200); Globulin 2.3 g/dL (1.6-3.3); Glucose 94 mg/dL (70-110); LDL Cholesterol,Calculated 103.2 mg/dL (0.0-131.0); Non-African American GFR(CKD) 81.8 (60.0-200.0); Potassium 4.5 mmol/L (3.5-5.5); Sodium 141 mmol/L (135-145); Total Bilirubin 0.9 mg/dL (0.3-1.2); Total Protein 6.8 g/dL (6.2-8.2)
[2019-04-25 19:18] LABS: Estradiol 39.1 pg/mL; Follicle Stimulating Hormone 0.4 mIU/mL
[2019-04-25 20:11] LABS: Luteinizing Hormone <0.1 mIU/mL
== END | disposition home or self-care (01) ==
LOC: LABWHC1 12:42
DX: Z00.00 Encounter for general adult medical examination without abnormal findings (principal); R53.83 Other fatigue; R89.1 Abnormal level of hormones in specimens from other organs, systems and tissues; R94.6 Abnormal results of thyroid function studies
CPT/HCPCS: 36415; 80053; 80061; 82670; 83001; 83002; 84153; 84270; 84402; 84403; 84439; 84443; 84480; 84481; 85027

== ENCOUNTER → 2019-04-25 | Outpatient (CLI) | payer BC | END | disposition home or self-care (01) | LOC: LABWHC1 12:36 | DX: C62.12 Malignant neoplasm of descended left testis (principal) | CPT/HCPCS: 36415; 82105; 83615 ==

== ENCOUNTER → 2019-08-06 | Outpatient (CLI) | payer BC ==
[2019-08-06 09:15] LABS: Basophils # (A) 0.1 k/uL (0-0.2); Basophils % (A) 1 %; Eosinophils # (A) 0.4 k/uL (0-0.7); Eosinophils % (A) 6 %; HCT 47.2 % (39.0-53.0); HGB 15.7 gm/dL (13.0-17.5); Lymphocytes # (A) 1.7 k/uL (1.0-4.8); Lymphocytes % (A) 28 %; MCH 31.3 pg (25.0-35.0); MCHC 33.3 g/dL (31.0-37.0); MCV 93.9 fL (80.0-100.0); Mean Platelet Volume 7.5; Monocytes # (A) 0.4 k/uL (0-1.0); Monocytes % (A) 8 %; Neutrophils # (A) 3.3 k/uL (1.3-7.7); Neutrophils % (A) 56 %; Platelet Count 183 k/uL (150-450); RBC 5.03 m/uL (4.30-5.90); RDW 13.3 % (11.5-15.5)
[2019-08-06 16:17] LABS: African American GFR (CKD) 85.5 (60.0-200.0); Albumin 4.4 g/dL (3.80-4.90); Albumin/Globulin Ratio 1.91 (1.60-3.17); Calcium 9.2 mg/dL (8.7-10.3); Globulin 2.3 g/dL (1.6-3.3); Non-African American GFR(CKD) 73.7 (60.0-200.0); Potassium 4.1 mmol/L (3.5-5.5); Total Bilirubin 0.5 mg/dL (0.2-1.2); Total Protein 6.7 g/dL (6.2-8.2)
== END | disposition home or self-care (01) ==
LOC: LABWHC1 08:17
PROVIDERS: ATTEND Internal Medicine Medical Oncology
DX: C62.12 Malignant neoplasm of descended left testis (principal)
CPT/HCPCS: 36415; 80053; 82105; 83615; 85025

== ENCOUNTER → 2020-04-09 | Outpatient (CLI) | payer BC ==
[2020-04-09 09:47] LABS: Basophils % (A) 1 %; Eosinophils # (A) 0.2 k/uL (0-0.7); Eosinophils % (A) 4 %; HCT 46.9 % (39.0-53.0); HGB 15.5 gm/dL (13.0-17.5); Lymphocytes # (A) 1.8 k/uL (1.0-4.8); Lymphocytes % (A) 38 %; MCH 30.7 pg (25.0-35.0); MCHC 33.1 g/dL (31.0-37.0); MCV 92.7 fL (80.0-100.0); Mean Platelet Volume 7.6; Monocytes # (A) 0.5 k/uL (0-1.0); Monocytes % (A) 10 %; Neutrophils # (A) 2.1 k/uL (1.3-7.7); Neutrophils % (A) 45 %; Platelet Count 190 k/uL (150-450); RBC 5.06 m/uL (4.30-5.90); RDW 14.3 % (11.5-15.5); WBC 4.7 k/uL (3.8-10.6)
[2020-04-09 16:36] LABS: African American GFR (CKD) 94.1 (60.0-200.0); Albumin 4.4 g/dL (3.80-4.90); Albumin/Globulin Ratio 2.32 (1.60-3.17); Anion Gap 7.3 mmol/L (4.00-12.00); BUN/Creat Ratio 20.83 Ratio (12.00-20.00); Calcium 9.6 mg/dL (8.7-10.3); Carbon Dioxide 29.7 mmol/L (21.6-31.8); Chol/HDL Ratio 5.38; Globulin 1.9 g/dL (1.6-3.3); LDL Cholesterol,Calculated 81.4 mg/dL (0.0-131.0); Non-African American GFR(CKD) 81.2 (60.0-200.0); Total Bilirubin 0.6 mg/dL (0.2-1.2); Total Protein 6.3 g/dL (6.2-8.2); VLDL Calculation 10.6 mg/dL (5.00-40.00)
[2020-04-09 16:42] LABS: Estradiol 58.4 pg/mL
[2020-04-09 16:46] LABS: Prostate Specific Antigen 0.8 ng/mL (0.0-2.5)
== END | disposition home or self-care (01) ==
LOC: LABWHC1 09:03
PROVIDERS: ATTEND Internal Medicine
DX: Z00.00 Encounter for general adult medical examination without abnormal findings (principal); R53.83 Other fatigue; R89.1 Abnormal level of hormones in specimens from other organs, systems and tissues; R94.6 Abnormal results of thyroid function studies
CPT/HCPCS: 36415; 80053; 80061; 82670; 84153; 84403; 84443; 85025